=== PATIENT | female | born 1960 | race Caucasian/White ===

== ENCOUNTER → 2017-05-05 | Outpatient (CLI) | payer BC, OTHER ==
--- NOTE | ~2017-05-05 | PFR/MVV ---
[facility] [place] [address] PULMONARY FUNCTION MVV/REPORT Name: SHERYL KOENIG Room #: [facility].#: [id number] Admission: 05/05/17 Attend Phys: Olivre Kam MD Discharge: Date of : 62 Report #: [id number] THIS REPORT FOR: //name// COPIES FOR: AGE: 56 SEX/RACE: F/C >> SPIROMETRY: (BTPS) Height: 65.0 in cm Weight: 175 lbs kg Exam Date: 05/05/17 PRE-RX POST-RX PRED BEST %PRED BEST %PRED %CHG FVC LITERS . 3.20 . 3.23 . 101 . 3.16 . 99 . -2 FEV1 LITERS . 2.61 . 2.31 . 89 . 2.44 . 93 . 6 FEV1/FVC % . 83 . 72 . 86 . 77 . 93 . 8 PTE53-18% L/Sec . 2.84 . 1.68 . 59 . 2.19 . 77 . 30 PEF L/SEC . 5.98 . 4.40 . 74 . 4.49 . 75 . 2 FEF50/FIF50 UNITLESS . <1.00 . 1.15 . . 2.01 . . 75 MVV L/Min . 96 . 37 . 39 f 1/Min . . 135 . >> LUNG VOLUMES: (BTPS) PRE-RX POST-RX PRED AVG %PRED AVG %PRED %CHG VC Liters . 3.20 . 3.23 . 101 . . . TLC Liters . 5.14 . 5.05 . 98 . . . RV Liters . 1.88 . 1.82 . 97 . . . RV/TLC % . 36 . 36 . 99 . . . FRC PL Liters . 2.69 . 2.27 . 85 . . . FRC N2 Liters . 2.69 . . . . . ERV Liters . . 0.45 . . . . IC Liters . . 2.61 . . . . >> DIFFUSION: DLCO ml/Min/mmHg . 23.0 . 13.2 . 57 . . . DL Elle ml/Min/mmHg . 23.0 . 13.2 . 57 . . . DLCO/VA ml/Min/mmHg . 3.98 . 3.79 . 95 . . . VA Liters . . 3.48 . . . . [facility] [address] [place] [address] PULMONARY FUNCTION MVV/REPORT Name: SHERYL KOENIG Room #: [facility]#: [id number] Admission: 05/05/17 Attend Phys: Oliver Kam MD Discharge: Date of : 62 Report #: [id number] COMMENTS: COMMENTS: >> RESISTANCE: PRE-RX PRED AVG %PRED Raw Total cmH20/L/Sec . . 5.95 . Raw Insp cmH20/L/Sec . . 5.40 . Raw Exp cmH20/L/Sec . . 12.27 . Raw cmH20/L/Sec . 1.43 . 3.38 . 237 Gaw L/Sec/cmH20 . 0.645 . 0.296 . 46 sRaw cmH20 Sec . 3.84 . 8.98 . 234 sGaw l/cmH20 Sec . 0.261 . 0.111 . 43 Vtq Liters . . 2.66 . # = OUTSIDE 95% CONFIDENCE INTERVAL CALIBRATION: PRED: 3.00 ACTUAL: EXP 3.01 INSP 3.02 [facility]-OL10-06 [facility]-05 N-1804-4 >> INTERPRETATION/IMPRESSION: CC: Oliver Ruvalcaba MD Spirometric examination shows normal flows. There was no significant bronchodilator response. There is mild response to bronchodilator. Small airways disease is suggested. Lung volumes are normal. Diffusion capacity is mildly reduced, but normal when corrected for alveolar volume. Flow volume loop is normal. IMPRESSION: Normal pulmonary functions, small airways disease is suggested. Clinical correlation is recommended. <ELECTRONICALLY SIGNED> By: Jj Cao MD 06/03/17 1333 Jj Cao MD /nt
== END ==
LOC: RAD 09:36
DX: R06.02 Shortness of breath (principal); M32.9 Systemic lupus erythematosus, unspecified; E55.9 Vitamin D deficiency, unspecified